=== PATIENT | male | born 1965 | race African-American/Black ===

== ENCOUNTER 2020-10-18 21:34 | Emergency (ER) | payer BC ==
[~2020-10-18] VITALS: Ht 180.3 cm; Wt 79.5 kg
[2020-10-18] MEDS ORDERED: HYDR-2155 PO (22:13)
[2020-10-18] MEDS ORDERED: DIAZ5TAB4 PO (22:13)
--- NOTE | 2020-10-18 22:14 | PHYS DOC ---
Past History Past Medical History: No Pertinent History Past Surgical History: No Surgical History Alcohol Use: Occasionally Adult General Chief Complaint Chief Complaint: MULTIPLE COMPLAINTS HPI HPI Patient is a 55-year-old male who presents with low back pain. States a couple weeks ago he was doing some work and felt a twinge in his left low back. States that since then he has had a dull achy pain in the area, 6 out of 10, with no radiation. Denies any numbness/weakness/tingling. States he is making urine and stool normally for him. States he does have a primary care physician but has not been able to get in with them to discuss this yet. States he had not taken any medications. Review of Systems Review of Systems Review of systems otherwise unremarkable except noted in HPI Allergies Allergies Allergies Coded Allergies Type Severity Reaction Last Updated Verified No Known Drug Allergies 10/18/20 No Physical Exam Physical Exam Constitutional: Well developed, well nourished, no acute distress, non-toxic appearance. [] HENT: Normocephalic, atraumatic, bilateral external ears normal, oropharynx moist, no oral exudates, nose normal. [] Eyes: conjunctiva normal, no discharge. [] Neck: Normal range of motion, no tenderness, supple, no stridor. [] Cardiovascular:Heart rate regular rhythm, no murmur [] Lungs & Thorax: Bilateral breath sounds clear to auscultation [] Abdomen: soft, no tenderness, no masses, no pulsatile masses. [] Skin: Warm, dry, no erythema, no rash. [] Back: No tenderness, no CVA tenderness. [] Extremities: No tenderness, no cyanosis, no clubbing, ROM intact, no edema. [] Neurologic: Alert and oriented X 3, normal motor function, normal sensory function, able to flex and extend at the hip, able to ambulate without issue, able to sit without issue no focal deficits noted. [] Psychologic: Affect normal, judgement normal, mood normal. [] Current Patient Data Vital Signs Vital Signs Date Time Temp Pulse Resp B/P (MAP) Pulse Ox O2 Delivery O2 Flow Rate FiO2 10/18/20 21:38 97.7 76 20 140/93 (109) 98 Room Air EKG EKG [] Radiology/Procedures Radiology/Procedures [] Heart Score C/O Chest Pain: No Risk Factors: Risk Factors: DM, Current or recent (<one month) smoker, HTN, HLP, family history of CAD, obesity. Risk Scores: Risk Factors: DM, Current or recent (<one month) smoker, HTN, HLP, family history of CAD, obesity. Course & Med Decision Making Course & Med Decision Making Patient is a 55-year-old male who presents with right lower back pain for couple of weeks Vital signs not concerning. Physical exam noted above. Patient with no focal neurologic deficits. Patient able to ambulate and sit without issue. No signs of damage, bruising or deformity. Given oral pain medication and muscle relaxer in the emergency department as well as NSAID. Advised on pain control at home. Advised to follow-up with primary care physician as soon as he can. Gave strict return precautions to the ED. Patient grateful, verbalized understanding and agreed with plan of discharge. [] Dragon Disclaimer Dragon Disclaimer This electronic medical record was generated, in whole or in part, using a voice recognition dictation system. Departure Departure: Impression: Primary Impression: Low back pain Disposition: HOME / SELF CARE / HOMELESS Condition: GOOD Referrals: PCP,UNKNOWN (PCP) ESAU CASE MD Patient Instructions: Back Pain, Adult Additional Instructions: Please read all the attached information very carefully. Please follow the pain regimen we discussed in the emergency department over the next couple of days. Please do light stretching and some walking over the next few days as discussed. Please follow-up with your primary care physician first thing Wednesday morning to discuss your ED visit and set up a follow-up as needed. Please come back to the emergency department immediately with new or concerning symptoms. Scripts Diazepam (DIAZEPAM) 5 Mg Tablet 5 MG PO BID for back spasm for 3 Days, #6 TAB Prov: YOGESH ABAD MD 10/18/20 Hydrocodone Bit/Acetaminophen (HYDROCODONE-APAP 5-325 ) 1 Each Tablet 1 TAB PO TID PRN for back pain for 3 Days, #9 TAB 0 Refills Prov: YOGESH ABAD MD 10/18/20 YOGESH ABAD MD October 18, 2020 22:14
[2020-10-18] MEDS ORDERED: oxyCODONE/APAP 5/325 1 TAB TABLET PO ONE (22:15)
[2020-10-18] MEDS ORDERED: diazePAM 5 MG TABLET. PO ONE (22:15)
[2020-10-18 22:25] VITALS: BP 136/90
== END 2020-10-18 22:30 | disposition home or self-care (01) ==
LOC: ER 21:34
DX: M54.5 Low back pain (principal); X50.1XXA Overexertion from prolonged static or awkward postures, initial encounter; Y93.89 Activity, other specified; Y92.89 Other specified places as the place of occurrence of the external cause; Y99.8 Other external cause status
CPT/HCPCS: 99283-25

== ENCOUNTER 2021-09-14 13:30 | Emergency (ER) | payer BC ==
[~2021-09-14] VITALS: Ht 180.3 cm; Wt 80.2 kg
[~2021-09-14 13:30] MED LIST: DIAZ5TAB4 PO; HYDR-2155 PO
[2021-09-14] MEDS ORDERED: KETOROLAC 30 MG/ML VIAL. IVP ONE (14:00)
[2021-09-14] MEDS ORDERED: ORPHENADRINE CITRATE 60 MG/2 ML VIAL. IM ONE (14:00)
--- NOTE | 2021-09-14 14:03 | PHYS DOC ---
Past History Past Medical History: No Pertinent History Past Surgical History: No Surgical History Alcohol Use: Occasionally General Adult EDM: Chief Complaint: ABDOMINAL PAIN HPI: HPI: Patient is a 56-year-old male who presents to the emergency department for lateral back pain and right lower quadrant pain that started on . Patient is concerned that he may be experiencing appendicitis. Patient rates his pain 3 out of 10. He reports that with movement 8 out of 10. He denies dysuria, urinary frequency urgency, nausea, vomiting, fevers. He reports that he had a similar issue 6 months ago and was seen in this emergency department. I reviewed his chart it appears that he presented for muscle spasms in his back was treated with pain medication and muscle relaxers. Review of Systems: Review of Systems: Constitutional: See HPI GI: See HPI : See HPI Musculoskeletal: See HPI Current Medications: Current Meds: Current Medications Medications (Trade) Dose Ordered Sig/Britt Start Time Stop Time Status Last Admin Dose Admin Ketorolac Tromethamine (Toradol 30mg Vial) 30 mg 1X ONCE 09/14/21 14:00 09/14/21 14:01 UNV Orphenadrine Citrate (Norflex) 60 mg 1X ONCE 09/14/21 14:00 09/14/21 14:01 UNV Allergies: Allergies: Allergies Coded Allergies Type Severity Reaction Last Updated Verified No Known Drug Allergies 09/14/21 No Physical Exam: PE: Constitutional: Well developed, well nourished, no acute distress, non-toxic a ppearance. [] HENT: Normocephalic, atraumatic, bilateral external ears normal, oropharynx moist, no oral exudates, nose normal. [] Eyes: PERRL, EOMI, conjunctiva normal, no discharge. [] Neck: Normal range of motion, no tenderness, supple, no stridor. [] Cardiovascular:Heart rate regular rhythm, no murmur [] Lungs & Thorax: Bilateral breath sounds clear to auscultation [] Abdomen: Bowel sounds normal, soft, pain with palpation to right groin, no masses, no pulsatile masses. [] Skin: Warm, dry, no erythema, no rash. [] Back: No tenderness, no CVA tenderness. [] Extremities: No tenderness, no cyanosis, no clubbing, ROM intact, no edema. [] Neurologic: Alert and oriented X 3, normal motor function, normal sensory function, no focal deficits noted. [] Psychologic: Affect normal, judgement normal, mood normal. [] Current Patient Data: Labs: Laboratory Tests Test 09/14/21 14:08 09/14/21 14:15 White Blood Count 4.1 x10^3/uL Red Blood Count 4.70 x10^6/uL Hemoglobin 14.9 g/dL Hematocrit 44.6 % Mean Corpuscular Volume 95 fL Mean Corpuscular Hemoglobin 32 pg Mean Corpuscular Hemoglobin Concent 33 g/dL Red Cell Distribution Width 13.2 % Platelet Count 181 x10^3/uL Neutrophils (%) (Auto) 50 % Lymphocytes (%) (Auto) 34 % Monocytes (%) (Auto) 8 % Eosinophils (%) (Auto) 6 % Basophils (%) (Auto) 2 % Neutrophils # (Auto) 2.0 x10^3uL Lymphocytes # (Auto) 1.4 x10^3/uL Monocytes # (Auto) 0.3 x10^3/uL Eosinophils # (Auto) 0.2 x10^3/uL Basophils # (Auto) 0.1 x10^3/uL Sodium Level 144 mmol/L Potassium Level 4.1 mmol/L Chloride Level 109 mmol/L Carbon Dioxide Level 28 mmol/L Anion Gap 7 Blood Urea Nitrogen 10 mg/dL Creatinine 1.1 mg/dL Estimated GFR (Cockcroft-Gault) 84.1 BUN/Creatinine Ratio 9 Glucose Level 105 mg/dL Calcium Level 9.3 mg/dL Total Bilirubin 0.3 mg/dL Aspartate Amino Transf (AST/SGOT) 21 U/L Alanine Aminotransferase (ALT/SGPT) 27 U/L Alkaline Phosphatase 45 U/L Total Protein 7.2 g/dL Albumin 3.8 g/dL Albumin/Globulin Ratio 1.1 Lipase 70 U/L Urine Collection Type Clean catch Urine Color Yellow Urine Clarity Clear Urine pH 5.5 Urine Specific [place] >=1.030 Urine Protein Neg Urine Glucose (UA) Neg mg/dL Urine Ketones (Stick) Neg mg/dL Urine Blood Neg Urine Nitrite Neg Urine Bilirubin Neg Urine Urobilinogen Dipstick 0.2 mg/dL Urine Leukocyte Esterase Neg Urine RBC 0 /HPF Urine WBC 0 /HPF Urine Squamous Epithelial Cells None /LPF Urine Bacteria 0 /HPF Current Medications Medications (Trade) Dose Ordered Sig/Britt Route PRN Reason Start Time Stop Time Status Last Admin Dose Admin Ketorolac Tromethamine (Toradol 30mg Vial) 30 mg 1X ONCE IVP 09/14/21 14:00 09/14/21 14:07 DC 09/14/21 14:10 Orphenadrine Citrate (Norflex) 60 mg 1X ONCE IM 09/14/21 14:00 09/14/21 14:07 DC 09/14/21 14:12 Iohexol (Omnipaque 300 Mg/ml) 75 ml 1X ONCE IV 09/14/21 14:15 09/14/21 14:16 DC 09/14/21 14:25 Vital Signs: Vital Signs Date Time Temp Pulse Resp B/P (MAP) Pulse Ox O2 Delivery O2 Flow Rate FiO2 09/14/21 13:39 98.3 68 18 148/87 (107) 97 Room Air EKG: EKG: [] Radiology/Procedures: Radiology/Procedures: []REASON: rlq pain PROCEDURE: CT ABD PELV W/ IV CONTRST ONLY Examination: CT of the abdomen pelvis with IV contrast HISTORY: History of right lower quadrant abdominal pain COMPARISON: None available Technique: Axial CT images of the abdomen pelvis were performed with IV contrast. Coronal and sagittal reformats are performed Exposure: One or more of the following individualized dose reduction techniques were utilized for this examination: 1. Automated exposure control 2. Adjustment of the mA and/or kV according to patient size 3. Use of iterative reconstruction technique FINDINGS: The bibasilar lungs are clear. No evidence of free air identified in the abdomen.The visualized liver, spleen, adrenals grossly appears unremarkable. The gallbladder is mildly distended. The stomach is mildly distended. The visualized pancreas grossly appears unremarkable. Small bowel is mildly distended with fluid particularly in the lower bowel loops. Mild fat stranding identified about the lower small bowel loops. The appendix is normal. Feces and gas noted in the colon. Punctate 3 mm calculus right kidney. Urinary bladder is mildly distended. Mild thickened appearance of the wall of the urinary bladder. Mild degenerative changes lumbar spine. IMPRESSION: 1. Mild distended fluid-filled small bowel loops particularly in the lower bowel loops could be mild enteritis. 2. Mild thickened appearance of the wall of the bladder could be due to nondistention or cystitis. Correlate with lab values. 3. Punctate 3 mm calculus right kidney. Electronically signed by: Chandrakant Neal MD (09/14/2021 3:01 PM) [id number] DICTATED AND SIGNED BY: CHANDRAKANT NEAL MD DATE: 09/14/21 1453 CC: FADIA DENNISON APRN; KODY KELLY ~ Heart Score: C/O Chest Pain: N/A Risk Factors: Risk Factors: DM, Current or recent (<one month) smoker, HTN, HLP, family history of CAD, obesity. Risk Scores: Score 0 - 3: 2.5% MACE over next 6 weeks - Discharge Home Score 4 - 6: 20.3% MACE over next 6 weeks - Admit for Clinical Observation Score 7 - 10: 72.7% MACE over next 6 weeks - Early Invasive Strategies Course & Med Decision Making: Course & Med Decision Making Pertinent Labs and Imaging studies reviewed. (See chart for details) [] Patient resents to the emergency department for bilateral back pain and right groin pain. Patient is concerned he may be experiencing appendicitis. Work-up in the ER consisted of blood work, urinalysis and CT imaging of abdomen and pelvis. Patient reports that this feels similar to the last time he was seen in the emergency department for this symptom at that time he was diagnosed with m uscle spasm and was given anti-inflammatory medications and a muscle relaxer. He was given pain medication and muscle relaxer in the ER today. Patient's lab work was unremarkable, CT scan shows a punctate 3 mm calculus in the right kidney and possible thickened bladder which the radiologist interpreted as possible cystitis although patient's urinalysis is negative, patient is noted to have fluid-filled small bowel likely enteritis is read by the radiologist. Patient is not having any nausea vomiting diarrhea. His physical exam is reassuring and his vital signs are stable. Patient will be treated with muscle relaxant for his musculoskeletal pain in his back and advised to take anti-inflammatory medications. He is advised to increase his fluids, follow a brat diet and follow-up with his primary care provider. I discussed with patient all findings and diagnostic testing as well as the need to follow-up with PCP for further evaluation and treatment or return to the ER if any new or worsening symptoms. Strict return precautions were also discussed at length. Patient voiced understanding and agreement with the plan. Patient is hemodynamically stable at the time of disposition. Denise Disclaimer: Denise Disclaimer: This electronic medical record was generated, in whole or in part, using a voice recognition dictation system. Departure Departure: Impression: Primary Impression: Gastroenteritis Additional Impression: Back pain Qualified Codes: M54.50 - Low back pain, unspecified; G89.29 - Other chronic pain Referrals: KODY KELLY (PCP) Patient Instructions: Back Pain, Adult, [id number], Viral Gastroenteritis Additional Instructions: You are seen in the emergency department today for back and abdominal pain. Your blood work was unremarkable. The CT scan shows possible gastroenteritis. You are also noted to have a small right kidney stone which is likely not the cause of your symptoms. Please increase your fluids. I would advise you to follow-up brat diet which is bananas, rice, applesauce and toast. Avoid eating spicy, greasy or fatty foods. If you develop any diarrhea you can take Imodium [id number]. You are being discharged home with a muscle relaxer that you can take for your back pain. This medication may cause sedation so do not take when you need to be alert, driving a vehicle or with alcohol. You can also take ibuprofen or naproxen at home for your pain. Follow-up with your primary care provider on Wednesday regarding your ER visit. Return to the emergency department if you develop worsening of your pain, high fevers refractory to treatment, intractable nausea or vomiting, blood in your stools or vomit or any new or worsening concerns. Scripts Cyclobenzaprine Hcl (CYCLOBENZAPRINE HCL) 5 Mg Tablet 1 TAB PO TID for muscle spasm for 7 Days, #21 TAB 0 Refills Prov: FADIA DENNISON APRN 09/14/21 FADIA DENNISON APRN Sep 14, 2021 14:03
[2021-09-14] MEDS ORDERED: IOHEXOL 300 MG/ML 75 ML VIAL. IV ONE (14:15)
[2021-09-14 14:33] LABS: BASO # 0.1 x10^3/uL (0.0-0.2); BASO % 2 % (0-3); EOS # 0.2 x10^3/uL (0.0-0.7); EOS % 6 % (0-3); HEMATOCRIT 44.6 % (39.0-53.0); HEMOGLOBIN 14.9 g/dL (13.0-17.5); LYMPH # 1.4 x10^3/uL (1.0-4.8); LYMPH % 34 % (24-48); MEAN CORPUSCULAR HEMOGLOBIN 32 pg (25-35); MEAN CORPUSCULAR HGB CONC 33 g/dL (31-37); MEAN CORPUSCULAR VOLUME 95 fL (79-100); MONO # 0.3 x10^3/uL (0.0-1.1); MONO % 8 % (0-9); NEUT % 50 % (31-73); PLATELET COUNT 181 x10^3/uL (140-400); RED CELL DISTRIBUTION WIDTH 13.2 % (11.5-14.5); WHITE BLOOD COUNT 4.1 x10^3/uL (4.0-11.0)
[2021-09-14 14:38] LABS: CLARITY,URINE CLEAR; COLOR,URINE YELLOW; GLUCOSE,URINE NEG (NEG)
[2021-09-14 14:39] LABS: BACTERIA,URINE 0 /HPF (0-FEW); NITRITE,URINE NEG (NEG); RBC,URINE 0 /HPF (0-2); UROBILINOGEN,URINE 0.2 mg/dL (0.2 mg/dL); WBC,URINE 0 /HPF (0-4)
[2021-09-14 14:45] LABS: CALCIUM 9.3 mg/dL (8.5-10.1); CREATININE 1.1 mg/dL (0.7-1.3); GFR 84.1; POTASSIUM 4.1 mmol/L (3.5-5.1)
[2021-09-14 14:51] LABS: ALBUMIN 3.8 g/dL (3.4-5.0); ALBUMIN/GLOBULIN RATIO 1.1 (1.0-1.7); TOTAL BILIRUBIN 0.3 mg/dL (0.2-1.0); TOTAL PROTEIN 7.2 g/dL (6.4-8.2)
--- NOTE | 2021-09-14 15:03 | RAD ---
Examination: CT of the abdomen pelvis with IV contrast HISTORY: History of right lower quadrant abdominal pain COMPARISON: None available Technique: Axial CT images of the abdomen pelvis were performed with IV contrast. Coronal and sagitta l reformats are performed Exposure: One or more of the following individualized dose reduction techniques were utilized for thi s examination: 1. Automated exposure control 2. Adjustment of the mA and/or kV according to patient size 3. Use of iterative reconstruction technique FINDINGS: The bibasilar lungs are clear. No evidence of free air identified in the abdomen.The visualized liver , spleen, adrenals grossly appears unremarkable. The gallbladder is mildly distended. The stomach is mildly distended. The visualized pancreas grossly appears unremarkable. Small bowel is mildly distend ed with fluid particularly in the lower bowel loops. Mild fat stranding identified about the lower sm all bowel loops. The appendix is normal. Feces and gas noted in the colon. Punctate 3 mm calculus rig ht kidney. Urinary bladder is mildly distended. Mild thickened appearance of the wall of the urinary bladder. Mild degenerative changes lumbar spine. IMPRESSION: 1. Mild distended fluid-filled small bowel loops particularly in the lower bowel loops could be mild enteritis. 2. Mild thickened appearance of the wall of the bladder could be due to nondistention or cystitis. Co rrelate with lab values. 3. Punctate 3 mm calculus right kidney. Electronically signed by: Chandrakant Neal MD (09/14/2021 3:01 PM) [id number]
[2021-09-14] MEDS ORDERED: CYCL5TAB PO (15:15)
[2021-09-14 15:27] VITALS: BP 125/69
== END 2021-09-14 15:34 | disposition home or self-care (01) ==
LOC: ER 13:30
DX: K52.9 Noninfective gastroenteritis and colitis, unspecified (principal); M54.59 Other low back pain; G89.29 Other chronic pain
CPT/HCPCS: 36415; 74177; 80053; 81001; 83690; 85025; 96372; 96374; 99285; J1885; J2360; Q9967